=== PATIENT | male | born 1990 | race Caucasian/White ===

== ENCOUNTER 2016-12-27 19:41 | Inpatient (IN) | payer MEDICAID ==
[~2016-12-27] VITALS: Ht 172.7 cm; Wt 98.4 kg
[2016-12-27] MEDS ORDERED: SOD CHLORIDE 0.9% 1,000 ML IV STA (20:16)
[2016-12-27] MEDS ORDERED: KETOROLAC 30 MG INJ IV STA (20:16)
--- NOTE | 2016-12-27 20:26 | ERD ---
ER Documentation Chief Complaint Date/Time DATE: 12/27/16 TIME: 20:19 Chief Complaint right buttock pain, no swelling noted HPI 26-year-old male presents to emergency department for complaints of right buttock pain for 8 months now, patient had a surgery for very anal abscess as multiple times, had a surgery 8 months ago, patient states that he was supposed to have a repeat surgery 3 months after the first procedure but was not able to go back and have this done. Patient has had pain ever since, now it has became more painful and swollen, has purulent discharge from the perirectal area, describes the pain as throbbing pain, 6/10 scale, is worse upon touching the area. Patient denies any fever or chills. Patient did not take any medications to help with symptoms. Patient denies any abdominal pain. Patient takes the pain radiates from the right buttock to the right lower leg. ROS All systems reviewed and are negative except as per history of present illness. Medications Home Meds Reported Medications [none] Unknown Strength No Conflict Check 12/27/16 Allergies Allergies: Uncoded Allergies: NKDA (Allergy, 09/08/11) PMhx/Soc Medical and Surgical Hx: pt denies Medical Hx History of Surgery: Yes (R abscess near rectum sx) Anesthesia Reaction: No Hx Neurological Disorder: No Hx Respiratory Disorders: No Hx Cardiac Disorders: No Hx Psychiatric Problems: No Hx Miscellaneous Medical Probl: No Hx Alcohol Use: Yes (socially) Hx Substance Use: No Hx Tobacco Use: No Smoking Status: Never smoker FmHx Family History: No coronary disease, No diabetes, No other Physical Exam Vitals Vital Signs Date Time Temp Pulse Resp B/P Pulse Ox O2 Delivery O2 Flow Rate FiO2 12/27/16 19:59 97.7 80 20 136/72 100 Physical Exam GENERAL: The patient is well developed and appropriate for usual state of health, in no apparent distress. CHEST: Clear to auscultation bilaterally. There are no rales, wheezes or rhonchi. HEART: Regular rate and rhythm. No murmurs, clicks, rubs or gallops. No S3 or S4. ABDOMEN: Soft, nontender and nondistended. Good bowel sounds. No rebound or guarding. No gross peritonitis. No gross organomegaly or masses. No Mcneal sign or McBurney point tenderness. BACK: No midline or flank tenderness. EXTREMITIES: Equal pulses bilaterally. There is no peripheral clubbing, cyanosis or edema. No focal swelling or erythema. Full range of motion. Grossly neurovascularly intact. NEURO: Alert and oriented. Cranial nerves 2-12 intact. Motor strength in all 4 extremities with 5/5 strength. Sensation grossly intact. Normal speech and gait. SKIN: There is no apparent rash or petechia. The skin is warm and dry. HEMATOLOGIC AND LYMPHATIC: There is no evidence of excessive bruising or lymphedema. No gross cervical, axillary, or inguinal lymphadenopathy. EU: Noted 2 cm diameter erythematous indurated area on the left perianal area, there is an open wound draining some pustular discharge, nonfluctuant. Tender on palpation. Good rectal tone. No other rash noted. Result Diagram: 12/27/16203412/27/162034 Results 24 hrs Laboratory Tests Test 12/27/16 20:35 White Blood Count 9.110^3/ul Red Blood Count 4.6010^6/ul Hemoglobin 13.8g/dl Hematocrit 40.4% Mean Corpuscular Volume 87.8fl Mean Corpuscular Hemoglobin 30.0pg Mean Corpuscular Hemoglobin Concent 34.2g/dl Red Cell Distribution Width 13.2% Platelet Count 83144^3/UL Mean Platelet Volume 9.4fl Neutrophils % 67.2% Lymphocytes % 21.6% Monocytes % 9.5% Eosinophils % 1.0% Basophils % 0.3% Nucleated Red Blood Cells % 0.0/100WBC Neutrophils # 6.110^3/ul Lymphocytes # 2.010^3/ul Monocytes # 0.910^3/ul Eosinophils # 0.110^3/ul Basophils # 0.010^3/ul Nucleated Red Blood Cells # 0.010^3/ul Urine Color STRAW Urine Clarity CLEAR Urine pH 6.0 Urine Specific [place] 1.017 Urine Ketones NEGATIVEmg/dL Urine Nitrite NEGATIVEmg/dL Urine Bilirubin NEGATIVEmg/dL Urine Urobilinogen NEGATIVEmg/dL Urine Leukocyte Esterase NEGATIVELeu/ul Urine Microscopic RBC 0/HPF Urine Microscopic WBC 0/HPF Urine Hemoglobin NEGATIVEmg/dL Urine Glucose NEGATIVEmg/dL Urine Total Protein NEGATIVEmg/dl Sodium Level 142mmol/L Potassium Level 4.1mmol/L Chloride Level 99mmol/L Carbon Dioxide Level 26mmol/L Anion Gap 21 Blood Urea Nitrogen 14mg/dl Creatinine 0.72mg/dl Glucose Level 96mg/dl Calcium Level 8.7mg/dl Total Bilirubin 0.1mg/dl Direct Bilirubin 0.00mg/dl Indirect Bilirubin 0.1mg/dl Aspartate Amino Transf (AST/SGOT) 26IU/L Alanine Aminotransferase (ALT/SGPT) 62IU/L Alkaline Phosphatase 74IU/L Total Protein 6.9g/dl Albumin 4.0g/dl Globulin 2.90g/dl Albumin/Globulin Ratio 1.37 Lipase 64U/L Current Medications Medications (Trade) Dose Ordered Sig/Cristina Route PRN Reason Start Time Stop Time Status Last Admin Dose Admin Sodium Chloride (NS) 1,000 ml @ 1,000 mls/hr Q1H STAT IV 12/27/16 20:16 12/27/16 21:15 DC 12/27/16 20:59 Ketorolac Tromethamine (Toradol) 30 mg ONCE STAT IV 12/27/16 20:16 12/27/16 20:18 DC 12/27/16 20:59 IV Flush 10 ml 10 ml STK-MED ONCE .ROUTE 12/27/16 21:42 12/27/16 21:43 DC 12/27/16 21:58 Sodium Chloride (NS) 100 ml @ ud STK-MED ONCE .ROUTE 12/27/16 21:42 12/27/16 21:43 DC 12/27/16 21:58 Iohexol (Omnipaque 300mg/ ml) 150 ml STK-MED ONCE .ROUTE 12/27/16 21:42 12/27/16 21:43 DC 12/27/16 21:58 Patient was given medication for pain here in emergency department, after treatment, patient verbalized feeling much better. Patient's pain is improved.Normal saline IV bolus was given here in emergency department for rehydration, patient tolerated IV fluids. PROCEDURE: CT abdomen and pelvis with intravenous contrast. CLINICAL INDICATION: Pain. TECHNIQUE: CT of the abdomen/pelvis was performed utilizing axial images with reconstructions in sagittal and coronal planes after uneventful administration of 100 cc Omnipaque 300. The administered radiation dose is CTDI 17 mGy, DLP 1108 mGy-cm. COMPARISON: No pertinent prior examinations were submitted for comparison. FINDINGS: Visualized Chest: The visualized lung bases are clear. Abdomen: The spleen, pancreas, gallbladder,and adrenal glands are unremarkable. The liver is diffusely decreased in attenuation, compatible with hepatic steatosis. The kidneys are without hydronephrosis. No definite urinary calculi are seen. There is no evidence of bowel obstruction. The appendix is normal. No intra- abdominal free air is seen. There is no evidence of intra-abdominal adenopathy or free fluid. Pelvis: There is no evidence of pelvic adenopathy or free fluid. The prostate and bladder are unremarkable.. There are some inflammatory changes within the gluteal fold on the right. This is predominately in a linear configuration and extends from the skin fold and fat tensity wall of the perirectal space. There is some mild perirectal fat infiltrative changes. No definite drainable fluid collection is seen. Osseous structures: Unremarkable. IMPRESSION: Inflammatory changes in the right gluteal fold, possibly a fistula between the skin and the perirectal space or rectum. This can be confirmed with clinical exam. There are some mild perirectal inflammatory changes without drainable fluid collection. Hepatic steatosis. RPTAT: HIKT .Everett Newman MD, MD Date Time Electronically viewed and signed by .Everett Newman MD, MD on 12/28/2016 00:17 .T/ CC: SUSAN HANEY SHOULDER BONER Procedures/MDM Medical decision making: Symptoms most likely consistent with fistula formation most likely from a perirectal abscess, there is no drainable fluid at this time , as per discussion with my attending physician, Dr. Denny, patient is to be admitted to the hospital for further evaluation, possible IV antibiotics. Patient does not appear to be having sepsis at this time, patient appears well and is hemodynamically stable. Departure Diagnosis: Primary Impression: Perianal fistula Additional Impression: Perianal abscess Condition: Fair SUSAN HANEY NP Dec 27, 2016 20:26
[2016-12-27 20:53] LABS: ADD SCAN DIFF NO
[2016-12-27 20:55] LABS: BASOPHILS % 0.3 % (0.0-2.0); EOSINOPHILS # 0.1 10^3/ul (0.0-0.5); HEMATOCRIT 40.4 % (42.0-52.0); HEMOGLOBIN 13.8 g/dl (14.0-18.0); LYMPHOCYTES % 21.6 % (15.0-51.0); MEAN CORPUSCULAR HGB CONC 34.2 g/dl (32.0-37.0); MEAN CORPUSCULAR VOLUME 87.8 fl (82.0-101.0); MEAN PLATELET VOLUME 9.4 fl (7.4-10.4); MONOCYTE # 0.9 10^3/ul (0.3-0.9); MONOCYTES % 9.5 % (0.0-11.0); NEUTROPHIL # 6.1 10^3/ul (1.6-7.5); NEUTROPHILS % 67.2 % (39.0-77.0); PLATELET COUNT 291 10^3/UL (140-415); RED CELL DISTRIBUTION WIDTH 13.2 % (11.5-14.5); WHITE BLOOD COUNT 9.1 10^3/ul (4.8-10.8)
[2016-12-27 21:11] LABS: ADD UMIC NO; UR ASCORBIC ACID NEGATIVE (NEGATIVE); UR BILIRUBIN (Dip) NEGATIVE (NEGATIVE); UR BLOOD (Dip) NEGATIVE (NEGATIVE); UR CLARITY CLEAR (CLEAR); UR COLOR STRAW (YELLOW); UR GLUCOSE (Dip) NEGATIVE (NEGATIVE); UR KETONES (Dip) NEGATIVE (NEGATIVE); UR LEUKOCYTE ESTERASE (Dip) NEGATIVE Leu/ul (NEGATIVE); UR NITRITE (Dip) NEGATIVE (NEGATIVE); UR SPECIFIC GRAVITY (Dip) 1.017 (1.003-1.030); UR TOTAL PROTEIN (Dip) NEGATIVE (NEGATIVE); UR UROBILINOGEN (Dip) NEGATIVE (NEGATIVE)
[2016-12-27 21:16] LABS: UR RBC 0 /HPF (0-5)
[2016-12-27 21:26] LABS: ALBUMIN/GLOBULIN RATIO 1.37; BILIRUBIN,INDIRECT 0.1 mg/dl (0-1.1); BILIRUBIN,TOTAL 0.1 mg/dl (0.2-1.3); CALCIUM 8.7 mg/dl (8.4-10.2); CREATININE 0.72 mg/dl (0.61-1.24); POTASSIUM 4.1 mmol/L (3.5-5.1); TOTAL PROTEIN 6.9 g/dl (6.1-8.1)
[2016-12-27] MEDS ORDERED: IOHEXOL 300MG/ML 150 ML BTL ONE (21:42)
[2016-12-27] MEDS ORDERED: SOD CHLORIDE 0.9% 100 ML ONE (21:42)
--- NOTE | 2016-12-28 00:18 | RADRPT ---
PROCEDURE: CT abdomen and pelvis with intravenous contrast. CLINICAL INDICATION: Pain. TECHNIQUE: CT of the abdomen/pelvis was performed utilizing axial images with reconstructions in s agittal and coronal planes after uneventful administration of 100 cc Omnipaque 300. The administered radiation dose is CTDI 17 mGy, DLP 1108 mGy-cm. COMPARISON: No pertinent prior examinations were submitted for comparison. FINDINGS: Visualized Chest: The visualized lung bases are clear. Abdomen: The spleen, pancreas, gallbladder,and adrenal glands are unremarkable. The liver is diffusely dec reased in attenuation, compatible with hepatic steatosis. The kidneys are without hydronephrosis. No definite urinary calculi are seen. There is no evidence of bowel obstruction. The appendix is normal. No intra-abdominal free air is seen. There is no evidence of intra-abdominal adenopathy or free fluid. Pelvis: There is no evidence of pelvic adenopathy or free fluid. The prostate and bladder are unremarkable. . There are some inflammatory changes within the gluteal fold on the right. This is predominately in a linear configuration and extends from the skin fold and fat tensity wall of the perirectal space. There is some mild perirectal fat infiltrative changes. No definite drainable fluid collection is seen. Osseous structures: Unremarkable. IMPRESSION: Inflammatory changes in the right gluteal fold, possibly a fistula between the skin and the perirect al space or rectum. This can be confirmed with clinical exam. There are some mild perirectal infla mmatory changes without drainable fluid collection. Hepatic steatosis. RPTAT: HIKT .Everett Newman MD, MD Date Time Electronically viewed and signed by .Everett Newman MD, on 12/28/2016 00:17 .T/
[2016-12-28] MEDS ORDERED: PIPER-TAZO 3.375 GM IV (PMX) 100 ML IVPB STA (02:08)
[2016-12-28] MEDS ORDERED: ONDANSETRON 4 MG INJ IV STA (02:49)
[2016-12-28] MEDS ORDERED: ONDANSETRON 4 MG INJ ONE (02:52)
[2016-12-28 02:57] VITALS: PULSE 56
[2016-12-28 03:24] VITALS: BP 121/73; RESP 18
[2016-12-28 03:44] VITALS: Ht 172.7 cm; Wt 98.4 kg
[2016-12-28] MEDS ORDERED: ACETAMINOPHEN 325 MG TAB PO PRN (05:30)
[2016-12-28] MEDS ORDERED: VANCOMYCIN IV PER PHARMACY XX SCH (05:30)
[2016-12-28] MEDS ORDERED: ONDANSETRON 4 MG INJ IV PRN (05:30)
[2016-12-28] MEDS ORDERED: NACL 0.9% 3 ML SYG IV SCH (05:30)
[2016-12-28] MEDS: DEXTROSE 5%-0.45% NACL 1,000 ML IV SCH ×2 (05:36→15:17)
[2016-12-28] MEDS: PIPER-TAZO 3.375 GM IV (PMX) 100 ML IVPB SCH ×2 (05:38→12:20)
[2016-12-28 06:55] LABS: ADD SCAN DIFF NO
[2016-12-28 07:00] LABS: BASOPHILS % 0.5 % (0.0-2.0); EOSINOPHILS # 0.1 10^3/ul (0.0-0.5); EOSINOPHILS % 1.6 % (0.0-7.0); HEMATOCRIT 40.5 % (42.0-52.0); HEMOGLOBIN 13.4 g/dl (14.0-18.0); LYMPHOCYTES % 34.2 % (15.0-51.0); MEAN CORPUSCULAR HEMOGLOBIN 29.6 pg (29.0-33.0); MEAN CORPUSCULAR HGB CONC 33.1 g/dl (32.0-37.0); MEAN CORPUSCULAR VOLUME 89.6 fl (82.0-101.0); MEAN PLATELET VOLUME 9.5 fl (7.4-10.4); MONOCYTE # 0.5 10^3/ul (0.3-0.9); MONOCYTES % 8.3 % (0.0-11.0); NEUTROPHIL # 3.2 10^3/ul (1.6-7.5); NEUTROPHILS % 54.9 % (39.0-77.0); PLATELET COUNT 256 10^3/UL (140-415); RED BLOOD COUNT 4.52 10^6/ul (4.70-6.10); RED CELL DISTRIBUTION WIDTH 13.4 % (11.5-14.5); WHITE BLOOD COUNT 5.8 10^3/ul (4.8-10.8)
[2016-12-28] MEDS ORDERED: VANCOMYCIN 2 GM in SOD CHLORIDE 0.9% 500 ML IVPB SCH (07:00)
[2016-12-28 07:20] LABS: ALBUMIN 3.6 g/dl (3.3-4.9); ALBUMIN/GLOBULIN RATIO 1.33; BILIRUBIN,INDIRECT 0.6 mg/dl (0-1.1); BILIRUBIN,TOTAL 0.6 mg/dl (0.2-1.3); CALCIUM 8.9 mg/dl (8.4-10.2); CREATININE 0.66 mg/dl (0.61-1.24); POTASSIUM 4.1 mmol/L (3.5-5.1); TOTAL PROTEIN 6.3 g/dl (6.1-8.1)
[2016-12-28 07:57] VITALS: BP 115/60; RESP 18
[2016-12-28 14:31] VITALS: BP 120/69; RESP 20
[2016-12-28] MEDS ORDERED: VANCOMYCIN 1.5 GM in SOD CHLORIDE 0.9% 250 ML IVPB SCH (15:00)
--- NOTE | 2016-12-28 15:40 | PDOCDIS ---
Discharge Instructions DIAGNOSIS Discharge Diagnosis Perianal Fistula CONDITION Patient Condition: Stable HOME CARE INSTRUCTIONS: Diet Instructions: Regular ACTIVITY: Activity Restrictions: Slowly Increase Activity FOLLOW UP/APPOINTMENTS Follow-up Plan Please follow up with [place]-rectal Surgeon, Dr. Ming Che. Please make an appointment at [phone] SCHOOL/WORK RELEASE May return to School/Work on: Dec 29, 2016 May return to School/Work with: No Restrictions HOSSEIN THAKKAR Dec 28, 2016 15:39
[2016-12-28] MEDS ORDERED: METR500T14 PO (15:48)
[2016-12-28] MEDS ORDERED: CIPR500T4 PO (15:48)
[2016-12-28] MEDS: morphine 2 MG INJ IV PRN ×2 (16:06→16:40)
--- NOTE | 2016-12-28 16:12 | DS ---
Date/Time of Note Date/Time of Note DATE: 12/28/16 TIME: 16:08 Discharge Summary Admission/Discharge Info Admit Date/Time Dec 28, 2016 at 02:09 Discharge Date/Time Discharge Diagnosis Perianal Fistula Cellulitis Medical noncompliance Patient Condition: Stable Hospital Course Patient is a 26-year-old male who presents to [facility] for pain upon defecation. Upon ED evaluation it was found that the patient had purulent drainage from what appeared to be an abscess and confirmed to be a likely fistula on CT. General surgery was consulted, Dr. Tom, who evaluated the patient and evaluated the CT, and since patient wanted to be discharged for a court appearance tomorrow morning, it was decided that the patient should continue on an oral antibiotic regimen, of cipro/flagyl as well as sitz baths and follow-up with a colorectal surgeon, Dr. Ming Che. All this information was conveyed to the patient and the patient understands the importance of surgical correction as this problem will likely recur if he continues. Patient will also be given a small prescription of pain medication. At this time patient is not septic with no white count, and wants to go home. Home Meds Active Scripts Metronidazole* (Metronidazole*) 500 Mg Tablet, 500 MG PO Q8 for 14 Days, #42 TAB Prov:HOSSEIN THAKKAR 12/28/16 Ciprofloxacin Hcl* (Ciprofloxacin Hcl*) 500 Mg Tablet, 500 MG PO BID for 14 Days , #28 TAB Prov:HOSSEIN THAKKAR 12/28/16 Discontinued Reported Medications [none] Unknown Strength No Conflict Check 12/27/16 Follow-up Plan follow up with Dr. Ming Che, colorectal surgery, Primary Care Provider Not On Staff Doctor Pending Labs Laboratory Tests Test 12/27/16 20:35 12/28/16 06:16 White Blood Count 9.110^3/ul (4.8-10.8) 5.810^3/ul (4.8-10.8) Red Blood Count 4.6010^6/ul (4.70-6.10) 4.5210^6/ul (4.70-6.10) Hemoglobin 13.8g/dl (14.0-18.0) 13.4g/dl (14.0-18.0) Hematocrit 40.4% (42.0-52.0) 40.5% (42.0-52.0) Mean Corpuscular Volume 87.8fl (82.0-101.0) 89.6fl (82.0-101.0) Mean Corpuscular Hemoglobin 30.0pg (29.0-33.0) 29.6pg (29.0-33.0) Mean Corpuscular Hemoglobin Concent 34.2g/dl (32.0-37.0) 33.1g/dl (32.0-37.0) Red Cell Distribution Width 13.2% (11.5-14.5) 13.4% (11.5-14.5) Platelet Count 54312^3/UL (140-415) 11673^3/UL (140-415) Mean Platelet Volume 9.4fl (7.4-10.4) 9.5fl (7.4-10.4) Neutrophils % 67.2% (39.0-77.0) 54.9% (39.0-77.0) Lymphocytes % 21.6% (15.0-51.0) 34.2% (15.0-51.0) Monocytes % 9.5% (0.0-11.0) 8.3% (0.0-11.0) Eosinophils % 1.0% (0.0-7.0) 1.6% (0.0-7.0) Basophils % 0.3% (0.0-2.0) 0.5% (0.0-2.0) Nucleated Red Blood Cells % 0.0/100WBC (0.0-0.0) 0.0/100WBC (0.0-0.0) Neutrophils # 6.110^3/ul (1.6-7.5) 3.210^3/ul (1.6-7.5) Lymphocytes # 2.010^3/ul (0.8-2.9) 2.010^3/ul (0.8-2.9) Monocytes # 0.910^3/ul (0.3-0.9) 0.510^3/ul (0.3-0.9) Eosinophils # 0.110^3/ul (0.0-0.5) 0.110^3/ul (0.0-0.5) Basophils # 0.010^3/ul (0.0-0.1) 0.010^3/ul (0.0-0.1) Nucleated Red Blood Cells # 0.010^3/ul (0.0-0.0) 0.010^3/ul (0.0-0.0) Urine Color STRAW (YELLOW) Urine Clarity CLEAR (CLEAR) Urine pH 6.0 (5.0-9.0) Urine Specific [place] 1.017 (1.003-1.030) Urine Ketones NEGATIVEmg/dL (NEGATIVE) Urine Nitrite NEGATIVEmg/dL (NEGATIVE) Urine Bilirubin NEGATIVEmg/dL (NEGATIVE) Urine Urobilinogen NEGATIVEmg/dL (NEGATIVE) Urine Leukocyte Esterase NEGATIVELeu/ul (NEGATIVE) Urine Microscopic RBC 0/HPF (0-5) Urine Microscopic WBC 0/HPF (0-5) Urine Hemoglobin NEGATIVEmg/dL (NEGATIVE) Urine Glucose NEGATIVEmg/dL (NEGATIVE) Urine Total Protein NEGATIVEmg/dl (NEGATIVE) Sodium Level 142mmol/L (135-144) 141mmol/L (135-144) Potassium Level 4.1mmol/L (3.5-5.1) 4.1mmol/L (3.5-5.1) Chloride Level 99mmol/L (97-110) 97mmol/L (97-110) Carbon Dioxide Level 26mmol/L (21-31) 30mmol/L (21-31) Anion Gap 21 (8-16) 18 (8-16) Blood Urea Nitrogen 14mg/dl (7-20) 10mg/dl (7-20) Creatinine 0.72mg/dl (0.61-1.24) 0.66mg/dl (0.61-1.24) Glucose Level 96mg/dl (70-220) 93mg/dl (70-220) Calcium Level 8.7mg/dl (8.4-10.2) 8.9mg/dl (8.4-10.2) Total Bilirubin 0.1mg/dl (0.2-1.3) 0.6mg/dl (0.2-1.3) Direct Bilirubin 0.00mg/dl (0.00-0.20) 0.00mg/dl (0.00-0.20) Indirect Bilirubin 0.1mg/dl (0-1.1) 0.6mg/dl (0-1.1) Aspartate Amino Transf (AST/SGOT) 26IU/L (15-46) 28IU/L (15-46) Alanine Aminotransferase (ALT/SGPT) 62IU/L (13-69) 66IU/L (13-69) Alkaline Phosphatase 74IU/L (42-121) 55IU/L (42-121) Total Protein 6.9g/dl (6.1-8.1) 6.3g/dl (6.1-8.1) Albumin 4.0g/dl (3.3-4.9) 3.6g/dl (3.3-4.9) Globulin 2.90g/dl (1.3-3.2) 2.70g/dl (1.3-3.2) Albumin/Globulin Ratio 1.37 1.33 Lipase 64U/L (23-300) HOSSEIN THAKKAR Dec 28, 2016 16:12
[2016-12-28 20:05] VITALS: BP_SYST 111; BP_SYST 116; BP_DIAS 57; BP_DIAS 66; RESP 18
--- NOTE | 2016-12-28 23:53 | CONS ---
Date/Time of Note Date/Time of Note DATE: 12/28/16 TIME: 23:52 Assessment/Plan Assessment/Plan Chief Complaint/Hosp Course 1. 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 Rectal pain 2/2 above -pain management -as above 3. Obesity: -encourage weight loss; lifestyle and exercise optimization 4. Current smoker: -encourage smoking cessation Patient seen and examined in collaboration with Dr. René Rivas Problems: Consultation Date/Type/Reason Admit Date/Time Dec 28, 2016 at 02:09 Date of Consultation: Dec 28, 2016 Type of Consultation: Surgical Reason for Consultation perineal abscess Hx of Present Illness Clyde Salcedo is a 26 yo man with a history of perianal abscess with multiple I &D's to that area, who presented to the emergency department with complaints of right buttock pain. He states that he was to have a repeat procedure in that area but did not have it done. He states that he has had pain for several months now, that is progressively getting worse. He reports swelling and discharge from his perirectal area. He denies nausea, vomiting, diarrhea, fever , chills, chest pain or shortness of breath. Denies inserting objects in rectum. CT abdomen/pelvis shows inflammatory change in the right gluteal fold with possible fistula between the skin and perirectal space or rectum. Surgical consult was asked to evaluate. Constitutional: No chills, No febrile Eyes: No discharge, No visual change ENT: No congestion, No pain Respiratory: No shortness of breath, No wheezing Cardiovascular: No chest pain, No lightheadedness Gastrointestinal: other (perirectal pain ), No constipation Genitourinary: No dysuria, No flank pain Skin: No pruritis, No rash Lymphatic: No adenopathy Immunologic: No pruritis, No urticaria Past Medical History perirectal abscess Obesity Past Surgical History I&D perirectal abscess Social History Alcohol Use: none Smoking Status: Light tobacco smoker Drug Use: none Exam/Review of Systems Vital Signs Vitals Vital Signs Date Time Temp Pulse Resp B/P Pulse Ox O2 Delivery O2 Flow Rate FiO2 12/28/16 20:05 98.3 63 18 116/66 97 12/28/16 02:57 Room Air Intake and Output 12/27/16 12/27/16 12/28/16 15:00 23:00 07:00 Intake Total 100 ml Balance 100 ml Exam Constitutional: alert, oriented, well developed Psych: nl mood/affect Head: atraumatic, normocephalic Eyes: PERRL ENMT: mucosa pink and moist, nl external ears & nose Neck: No jvd Respiratory: clear to auscultation Cardiovascular: nl pulses Gastrointestinal: non-tender, soft, No distended Musculoskeletal: No muscle weakness Extremities: No edema Neurological: nl mental status, nl speech, nl strength Skin: nl turgor Results Result Diagram: 12/28/16 0616 12/28/16 0616 Results 24 hrs Laboratory Tests Test 12/28/16 06:16 White Blood Count 5.8 # Red Blood Count 4.52 L Hemoglobin 13.4 L Hematocrit 40.5 L Mean Corpuscular Volume 89.6 Mean Corpuscular Hemoglobin 29.6 Mean Corpuscular Hemoglobin Concent 33.1 Red Cell Distribution Width 13.4 Platelet Count 256 Mean Platelet Volume 9.5 Neutrophils % 54.9 Lymphocytes % 34.2 Monocytes % 8.3 Eosinophils % 1.6 Basophils % 0.5 Nucleated Red Blood Cells % 0.0 Neutrophils # 3.2 Lymphocytes # 2.0 Monocytes # 0.5 Eosinophils # 0.1 Basophils # 0.0 Nucleated Red Blood Cells # 0.0 Sodium Level 141 Potassium Level 4.1 Chloride Level 97 Carbon Dioxide Level 30 Anion Gap 18 H Blood Urea Nitrogen 10 Creatinine 0.66 Glucose Level 93 Calcium Level 8.9 Total Bilirubin 0.6 Direct Bilirubin 0.00 Indirect Bilirubin 0.6 Aspartate Amino Transf (AST/SGOT) 28 Alanine Aminotransferase (ALT/SGPT) 66 Alkaline Phosphatase 55 Total Protein 6.3 Albumin 3.6 Globulin 2.70 Albumin/Globulin Ratio 1.33 TRANG DEVRIES NP Dec 28, 2016 23:52
--- NOTE | 2016-12-29 03:43 | HP ---
DATE OF ADMISSION: 12/28/2016 CHIEF COMPLAINT: Right buttock pain. HISTORY OF PRESENT ILLNESS: The patient is a 26-year-old male with a history of perianal abscess status post multiple I\T\Ds/surgeries, who presented to the emergency department complaining of right buttock pain. He states the last time he had a procedure was about 8 months ago, and he was supposed to follow up for a repeat procedure 3 months after, but he said he was not able to have that done. He said he has had pain for several months now, which has been progressively getting worse, and reported swelling as well as discharge from his perirectal area. He denies nausea, vomiting, fever, chills, chest pain, or shortness of breath. When he presented to the ER his vitals were stable. Laboratory values show that his CBC and CMP are within acceptable range. CT abdomen and pelvis with IV contrast shows inflammatory change in the right gluteal fold, possibly a fistula between the skin and the perirectal space or rectum. Also some mild perirectal inflammatory change without a drainable fluid collection and hepatic steatosis were noted. The patient was given pain medication and a dose of Zosyn while he was in the ER. REVIEW OF SYSTEMS: A 12-point review of systems was performed and negative except as noted in HPI. PAST MEDICAL HISTORY: As per HPI. PAST SURGICAL HISTORY: As per HPI. SOCIAL HISTORY: Denied a history of tobacco, alcohol, or illicit drug use. ALLERGIES: NO KNOWN DRUG ALLERGIES. HOME MEDICATIONS: None. PHYSICAL EXAMINATION: VITALS: Stable. GENERAL: The patient looks somewhat uncomfortable because of the pain in his rectal area. Otherwise he is able to speak in full sentences and answers questions appropriately. HEENT: intact. CARDIOVASCULAR: Bradycardic with regular rhythm. LUNGS: Clear. ABDOMEN: Soft, nontender. RECTAL: There is some swelling and erythema in the left perirectal area with some discharge. Area is also tender. EXTREMITIES: No edema. LABORATORY: Hemoglobin 13.8. Otherwise CBC and CMP are within acceptable range. IMAGING: CT abdomen and pelvis with IV contrast with result as mentioned in HPI. IMPRESSION: 1. Recurrent perirectal abscess with possible fistula. 2. Rectal pain, secondary to above. PLAN: He will be placed on broad-spectrum antibiotics. Will provide pain medication as needed. He is awaiting surgical evaluation by Dr Rivas. Further workup clinical course. Dictated By: Jori Wellington MD /alistair/cecil /Document#: [id number]
== END 2016-12-28 18:25 | disposition home or self-care (01) | DRG 394 ==
LOC: FTE 19:41 → PP2 12-28 02:09
PROVIDERS: ADMIT Internal Medicine; ATTEND Internal Medicine
DX: K61.0 Anal abscess (principal); L03.315 Cellulitis of perineum; K62.89 Other specified diseases of anus and rectum; E66.9 Obesity, unspecified; F17.200 Nicotine dependence, unspecified, uncomplicated; Z68.33 Body mass index [BMI] 33.0-33.9, adult; Z91.14 Patient's other noncompliance with medication regimen
CPT/HCPCS: 74177; 80053; 81003; 83690; 85025; J1885; J2270; J2405; J2543; J3370; J7030; J7040; J7042; J7050; Q9967